=== PATIENT | male | born 1995 | race Two or more races ===

== ENCOUNTER 2017-03-09 19:53 | Emergency (ER) | payer SELFPAY ==
[2017-03-09 20:03] VITALS: RESP 16; TEMP 98.1; O2SAT 98
[2017-03-09 20:39] LABS: % IMMATURE GRANULYOCYTES 0.9 % (0.0-1.1); ABSOLUTE IMMATURE GRANULOCYTES 0.11 10^3/uL (0.00-0.10); ADD DIFF? NO; ADD MORPH? NO; ADD SCAN? NO; ATYPICAL LYMPHOCYTE FLAG 10 (0-99); FRAGMENT RBC FLAG 0 (0-99); HEMATOCRIT 45.2 % (40.0-51.0); HEMOGLOBIN 15.5 g/dL (13.7-17.5); LEFT SHIFT FLG 0 (0-99); LIPEMIA HEMOLYSIS FLAG 90 (0-99); MEAN CELL HEMOGLOBIN 30.9 pg (27.9-34.1); MEAN CELL HEMOGLOBIN CONCENTR. 34.3 g/dL (32.4-36.7); MEAN PLATELET VOLUME 10.8 fL (8.7-11.7); PLATELET CLUMPS FLAG 0 (0-99); PLATELET COUNT 244 10^3/uL (150-400); RED BLOOD CELL COUNT 5.02 10^6/uL (4.40-6.38); RED CELL DISTRIBUTION WIDTH 13.2 % (11.5-15.2)
[2017-03-09] MEDS ORDERED: NS 100 ML BAG (MINI-BAG) IV ONE (21:01)
--- NOTE | 2017-03-09 21:12 | EDPHY ---
H & P Time Seen by Provider: 03/09/17 20:16 HPI/ROS: 2 half weeks ago this patient was playing soccer-goalie he dove to block a shot and then a player stepped on his right leg with cleats causing a superficial abrasion and a hematoma with significant ecchymosis extended down into his foot. He treated this with ice and analgesics with improvement. However over the past week he developed gradual onset of redness to the medial aspect of the right leg of site of the abrasions that has steadily increased and yesterday he noted lymphangitic streaking extending up the medial leg. He took ibuprofen with improvement as discomfort. Peak intensity of the discomfort with redness 7 /10 burning aching. After ibuprofen is mild intensity currently. He notes no proximal red streaking today. He is accompanied by his mother who drove min. ROS: No fevers chills or significant fatigue. No other constitutional symptoms HEENT: No complaints Pulmonary: No complaints cardiovascular: No lightheadedness. He reports no significant posterior calf swelling GI: No nausea or vomiting 7 point ROS is otherwise negative Smoking Status: Former smoker Physical Exam: Physical Exam Vital signs are normal. General: No acute distress Eyes: Pupils equal and react to light. Extraocular motions are intact. Lungs: No respiratory distress. Cardiac: Brisk capillary refill is intact throughout. Pulses are 2+ and symmetric in the affected extremity. He does have mild posterior calf tenderness on the right side but no significant swelling. Homans is negative. Skin: The patient has a hand size area of erythema to the right medial lower leg-site of his former abrasion with no fluctuance. There is mild edema present. No proximal lymphangitic streaking Neuro: Alert and oriented x3 with no sensorimotor deficits. Initial differential diagnosis: Cellulitis, resolving hematoma, DVT Constitutional: Initial Vital Signs Temperature (C) 36.7 C 03/09/17 19:55 Heart Rate 82 03/09/17 19:55 Respiratory Rate 16 03/09/17 19:55 Blood Pressure 161/71 H 03/09/17 19:55 O2 Sat (%) 98 03/09/17 19:55 O2 Delivery Mode Room Air Allergies/Adverse Reactions: No Known Allergies Allergy (Verified 03/09/17 20:02) Home Medications: Medication Instructions Recorded Amoxicillin/Clavulanate Pot 875 mg PO BID #20 tab 03/09/17 [Augmentin 875 MG TAB (*)] MDM/Departure - MDM Diagnostics: My CBC: white blood cell count of 12 with a left shift D-dimer is negative Medications Given: Discontinued Medications Ceftriaxone Sodium 1 gm/ (Sodium Chloride) 100 mls @ 200 mls/hr IV EDNOW ONE PRN Reason: Protocol Stop: 03/09/17 21:23 Last Admin: 03/09/17 21:07 Dose: 100 mls ED Course/Re-evaluation: IV Rocephin 1 g Will start him on a oral Augmentin here after. Discussion: Wound infection causing cellulitis with likely strep bacteria as the culprit given previous lymphangitic streaking. They do not think he has a DVT given negative D-dimer, negative Homans and no significant calf swelling. He does not meet septic criteria I counseled the patient regarding his cellulitis and the treatment plan. The patient remained comfortable and stable while in the emergency department. - Depart Disposition: Home, Routine, Self-Care Clinical Impression: Cellulitis, leg Qualifiers: Laterality: right Qualified Code(s): L03.115 - Cellulitis of right lower limb Condition: Good Instructions: Cellulitis (ED) Additional Instructions: Diagnosis: Leg cellulitis Plan: Apply warm packs to 3 times a day Augmentin antibiotic as directed Yogurt and/or probiotic while on Augmentin prevent diarrhea Ibuprofen Tylenol for discomfort Return for any significant worsening despite the treatment plan. Prescriptions: Amoxicillin/Clavulanate Pot [Augmentin 875 MG TAB (*)] 875 mg PO BID #20 tab Referrals: NONE *PRIMARY CARE P,. [Primary Care Provider] - As per Instructions
[2017-03-09 21:48] VITALS: BP 130/68
[2017-03-09 21:50] VITALS: PULSE 70
== END 2017-03-09 21:48 | disposition home or self-care (01) ==
LOC: CED 19:53
DX: L03.115 Cellulitis of right lower limb (principal); Z87.891 Personal history of nicotine dependence; W22.8XXA Striking against or struck by other objects, initial encounter; Y99.8 Other external cause status; Y93.66 Activity, soccer
CPT/HCPCS: 85025-PO; 85378-PO; 96365; J0696

== ENCOUNTER 2017-03-19 21:56 | Emergency (ER) | payer SELFPAY ==
[2017-03-19 22:10] VITALS: BP 134/94; PULSE 101; RESP 14; TEMP 98.8; O2SAT 97
[2017-03-19] MEDS ORDERED: SULFAMETHOX/TMP 800/160 MG 1 TAB PO ONE (22:16)
--- NOTE | 2017-03-19 22:20 | EDPHY ---
H & P Stated Complaint: infection RLE not improving after 9 days of antibiotics Time Seen by Provider: 03/19/17 22:11 HPI/ROS: CHIEF COMPLAINT: Abscess HISTORY OF PRESENT ILLNESS: Patient is a 21-year-old healthy man who comes to the emergency department complaining of an abscess in his right leg. He sustained an injury 3 weeks ago playing soccer. He was seen here but a week ago and diagnosed with cellulitis and started on Augmentin. He states that he has been taking it with minimal improvement. No fevers. The rash is not spread but he has formed a small abscess that has partially drained. No new injuries. No nausea vomiting or diarrhea. REVIEW OF SYSTEMS: Constitutional: denies: chills, fever, recent illness, recent injury EENTM: denies: blurred vision, double vision, nose congestion Respiratory: denies: cough, shortness of breath Cardiac: denies: chest pain, irregular heart rate, lightheadedness, palpitations Gastrointestinal/Abdominal: denies: abdominal pain, diarrhea, nausea, vomiting, blood streaked stools Genitourinary: denies: dysuria, frequency, hematuria, pain Musculoskeletal: denies: joint pain, muscle pain Skin: See HPI Neurological: denies: headache, numbness, paresthesia, tingling, dizziness, weakness Hematologic/Lymphatic: denies: blood clots, easy bleeding, easy bruising Immunologic/allergic: denies: HIV/AIDS, transplant EXAM: GENERAL: Well-appearing, well-nourished and in no acute distress. HEAD: Atraumatic, normocephalic. EYES: Pupils equal round and reactive to light, extraocular movements intact, sclera anicteric, conjunctiva are normal. ENT: TMs normal, nares patent, oropharynx clear without exudates. Moist mucous membranes. NECK: Normal range of motion, supple without lymphadenopathy or JVD. LUNGS: Breath sounds clear to auscultation bilaterally and equal. No wheezes rales or rhonchi. HEART: Regular rate and rhythm without murmurs, rubs or gallops. ABDOMEN: Soft, nontender, normoactive bowel sounds. No guarding, no rebound. No masses appreciated. BACK: No CVA tenderness, no spinal tenderness, step-offs or deformities EXTREMITIES: Normal range of motion, no pitting or edema. No clubbing or cyanosis. NEUROLOGICAL: Cranial nerves II through XII grossly intact. Normal speech, normal gait. 5/5 strength, normal movement in all extremities, normal sensation PSYCH: Normal mood, normal affect. SKIN: Small 1 x 2 cm abscess to right leg with a moderate amount of surrounding erythema that is slightly firm. Source: Patient Exam Limitations: No limitations - Personal History Current Tetanus Diphtheria and Acellular Pertussis (TDAP): Yes Tetanus Vaccine Date: within 10 years - Medical/Surgical History Hx Asthma: No Hx Chronic Respiratory Disease: No Hx Diabetes: No Hx Cardiac Disease: No Hx Renal Disease: No Hx Cirrhosis: No Hx Alcoholism: No Hx HIV/AIDS: No Hx Splenectomy or Spleen Trauma: No Other PMH: Blood clot in head-removed surgically,cellulitis - Family History Significant Family History: No pertinent family hx - Social History Smoking Status: Current every day smoker Alcohol Use: Sober Drug Use: None Constitutional: Initial Vital Signs Temperature (C) 37.1 C 03/19/17 22:07 Heart Rate 101 H 03/19/17 22:07 Respiratory Rate 14 03/19/17 22:07 Blood Pressure 134/94 H 03/19/17 22:07 O2 Sat (%) 97 03/19/17 22:07 O2 Delivery Mode Room Air Allergies/Adverse Reactions: No Known Allergies Allergy (Verified 03/19/17 22:06) Home Medications: Medication Instructions Recorded Amoxicillin/Clavulanate Pot 875 mg PO BID #20 tab 03/09/17 [Augmentin 875 MG TAB (*)] Sulfamethox/Tmp 800/160 mg 1 tab PO BID #14 tab 03/19/17 [Bactrim Ds] Medical Decision Making Procedures: Procedure: Abscess drainage. The patient's abscess was located on the right leg. I obtained verbal consent from the patient to drain the abscess who was informed about the possibility of bleeding and pain. The abscess was incised with 11 blade scalpel and 3 cc of purulent drainage was expressed. I irrigated the wound and placed some packing. The patient tolerated the procedure well. The procedure was performed by myself. ED Course/Re-evaluation: Patient tolerated the I and D. I will switch him to Bactrim. He is happy with this plan and declines further workup or testing at this time. Differential Diagnosis: Partial list of the Differential diagnosis considered include but were not limited to; abscess, cellulitis and although unlikely based on the history and physical exam, I also considered DVT, thrombophlebitis, fasciitis. I discussed these differential diagnoses and the plan with the patient as well as the usual and expected course. The patient understands that the diagnosis is provisional and that in medicine we are not always correct and that further workup is often warranted. Usual and customary warnings were given. All of the patient's questions were answered. The patient was instructed to return to the emergency department should the symptoms at all worsen or return, otherwise to followup with the physician as we discussed. - Data Points Medications Given: Discontinued Medications Trimethoprim/Sulfamethoxazole (Bactrim Ds) 1 ea PO EDNOW ONE PRN Reason: Protocol Stop: 03/19/17 22:17 Last Admin: 03/19/17 22:19 Dose: 1 ea Departure - Departure Disposition: Home, Routine, Self-Care Clinical Impression: Abscess Condition: Fair Instructions: Abscess (ED) Referrals: Brianda Hills MD [Medical Doctor] - As per Instructions Prescriptions: Sulfamethox/Tmp 800/160 mg [Bactrim Ds] 1 tab PO BID #14 tab
== END 2017-03-19 22:45 | disposition home or self-care (01) ==
LOC: CED 21:56
PROC: 0H9KXZZ Drainage of Right Lower Leg Skin, External Approach (ICD-10-PCS; principal; 2017-03-19)
DX: L02.415 Cutaneous abscess of right lower limb (principal); F17.200 Nicotine dependence, unspecified, uncomplicated